=== PATIENT | female | born 1985 | race Caucasian/White ===

== ENCOUNTER 2018-08-12 16:42 | Inpatient (IN) | payer OTHER ==
[~2018-08-12] VITALS: Ht 312.4 cm; Wt 76.7 kg
[2018-08-12] MEDS ORDERED: SODIUM CHLORIDE 0.9% 1,000 ML IV ONE ×2 (17:23→21:00)
[2018-08-12 17:50] LABS: BASOPHILS % 0.2 % (0.0-2.0); EOSINOPHILS % 0.4 % (0.0-5.0); HEMATOCRIT. 39.7 % (36.0-48.0); HEMOGLOBIN. 13.5 g/dL (12.0-16.0); LYMPHOCYTES % 19.4 % (20.0-50.0); MEAN CORPUSCULAR HEMOGLOBIN 28.3 pg (28.0-32.0); MEAN CORPUSCULAR VOLUME 83.2 fL (81.0-99.0); MEAN PLATELET VOLUME 8.8 fl (7.4-10.4); MONOCYTES % 5.4 % (2.0-8.0); NEUTROPHILS % 74.6 % (40.0-76.0); PLATELET 277 x1000/uL (130-400); RED BLOOD CELL COUNT 4.77 mill/uL (4.2-5.4); RED CELL DISTRIBUTION WIDTH 12.8 % (11.6-14.6)
[2018-08-12 17:57] LABS: CHLORIDE 104 mEq/L (98-107)
[2018-08-12 17:58] LABS: PROTHROMBIN TIME 9.9 sec (9.1-11.1)
[2018-08-12] MEDS ORDERED: LORAZEPAM 2MG/ML CPJ IV ONE (18:00)
[2018-08-12] MEDS ORDERED: DILTIAZEM HCL 120MG CAPSULE CD 24HR PO ONE (19:45)
[2018-08-12] MEDS ORDERED: DILTIAZEM HCL 5MG/ML 5ML VIAL IV ONE (19:45)
[2018-08-12 19:47] LABS: CLARITY URINE CLOUDY (CLEAR); COLOR URINE YELLOW (YELLOW); KETONES URINE NEGATIVE (NEGATIVE); LEUKOCYTE ESTERASE URINE NEGATIVE (NEGATIVE); NITRITE URINE NEGATIVE (NEGATIVE); OCCULT BLOOD URINE NEGATIVE (NEGATIVE); PROTEIN URINE NEGATIVE (NEGATIVE); SPECIFIC GRAVITY URINE 1.026 (1.005-1.030); UROBILINOGEN URINE 0.2 E.U./dL (0.2-1.0)
[2018-08-12] MEDS ORDERED: ACETAMINOPHEN 325MG TABLET PO PRN (20:45)
[2018-08-12] MEDS ORDERED: DOCUSATE SODIUM 100MG CAPSULE PO PRN (20:45)
[2018-08-12] MEDS ORDERED: LORAZEPAM 0.5MG TABLET PO PRN (20:45)
[2018-08-12] MEDS ORDERED: DILTIAZEM HCL 30MG TABLET PO PRN (20:45)
[2018-08-12] MEDS ORDERED: HYDROCODONE/ACETAMINOPHEN 5/325MG TABLET PO PRN (20:45)
[2018-08-12] MEDS ORDERED: CLONIDINE 0.1MG TABLET PO PRN (20:45)
[2018-08-12] MEDS ORDERED: ONDANSETRON HCL 4MG/2ML INJ IV PRN (20:45)
[2018-08-13 06:18] LABS: BASOPHILS % 0.1 % (0.0-2.0); EOSINOPHILS % 0.3 % (0.0-5.0); HEMATOCRIT. 37.1 % (36.0-48.0); HEMOGLOBIN. 12.7 g/dL (12.0-16.0); LYMPHOCYTES % 24.7 % (20.0-50.0); MEAN CORPUSCULAR HEMOGLOBIN 28.5 pg (28.0-32.0); MEAN CORPUSCULAR VOLUME 83.4 fL (81.0-99.0); MEAN PLATELET VOLUME 8.7 fl (7.4-10.4); MONOCYTES % 6.5 % (2.0-8.0); NEUTROPHILS % 68.4 % (40.0-76.0); PLATELET 250 x1000/uL (130-400); RED BLOOD CELL COUNT 4.45 mill/uL (4.2-5.4); RED CELL DISTRIBUTION WIDTH 13.1 % (11.6-14.6)
[2018-08-13 06:25] LABS: CHLORIDE 111 mEq/L (98-107)
[2018-08-13 06:32] LABS: LDL CHOLESTEROL 88 mg/dL (5-100)
[2018-08-13 06:33] LABS: CREATINE KINASE 166 IU/L (26-192); HDL CHOLESTEROL 42 mg/dL (40-59)
[2018-08-13 06:34] LABS: T4 FREE 1.44 ng/dL (0.76-1.46)
[2018-08-13 09:00] VITALS: BP 113/65
[2018-08-13] MEDS ORDERED: METOPROLOL TARTRATE 25MG TABLET PO SCH (09:00)
[2018-08-13 10:23] VITALS: BP 113/65
[2018-08-13 11:35] LABS: T4 FREE 1.48 ng/dL (0.76-1.46)
[2018-08-13 12:00] VITALS: BP 115/74
[2018-08-13 16:05] VITALS: BP 105/59
[2018-08-13 16:29] LABS: CREATINE KINASE 153 IU/L (26-192)
[2018-08-13 16:30] LABS: CREATINE KINASE MB FRACTION 1.2 ng/mL (0.5-3.6)
[2018-08-13 19:56] VITALS: BP 117/67
[2018-08-13] MEDS ORDERED: METOPROLOL TARTRATE 50MG TABLET PO SCH (21:00)
[2018-08-14] VITALS: BP 108/64
[2018-08-14 00:26] LABS: CREATINE KINASE 139 IU/L (26-192)
[2018-08-14 00:28] LABS: CREATINE KINASE MB FRACTION < 1.0 ng/mL (0.5-3.6)
[2018-08-14 04:00] VITALS: BP 107/56
[2018-08-14 07:30] VITALS: BP 111/69
[2018-08-14 07:56] LABS: CREATINE KINASE 122 IU/L (26-192)
[2018-08-14 07:57] LABS: CREATINE KINASE MB FRACTION < 1.0 ng/mL (0.5-3.6)
[2018-08-14] MEDS ORDERED: METOPROLOL TARTRATE 25MG TABLET PO SCH (09:00)
[2018-08-14 10:41] VITALS: BP 111/69
[2018-08-14] MEDS ORDERED: METO-539 PO (10:41)
== END 2018-08-14 11:30 | disposition home or self-care (01) | DRG 309 ==
LOC: ER 17:41 → 8WST 19:40 → CANRESERV 20:30 → ENRESERV 20:30 → EDBEDREQSVC 08-13 06:26 → ENRESERV 08-13 06:41
PROVIDERS: ADMIT Hospitalist; ATTEND Hospitalist
DX: I49.9 Cardiac arrhythmia, unspecified (principal); I48.92 Unspecified atrial flutter
CPT/HCPCS: 36415; 71045; 80053; 80061; 81003; 82550; 82553; 83036; 83880; 84439; 84443; 84484; 85025; 85379; 85610; 93005; 93306; 93970; 96361; 96374; 96375; 99291; J2060; J3490; J7030